=== PATIENT | female | born 1955 | race Caucasian/White ===

== ENCOUNTER → 2017-01-24 | Outpatient (CLI) | payer BC ==
[~2017-01-24] MED LIST: ARIP10TA14 PO; ATORVASTATIN; LISI-604 PO; PREG150C PO; VENL225T PO
== END | disposition home or self-care (01) ==
LOC: CT 07:34
PROVIDERS: ATTEND Urology
DX: N20.0 Calculus of kidney (principal)
CPT/HCPCS: 74176

== ENCOUNTER → 2017-06-04 | Outpatient (CLI) | payer BC ==
[~2017-06-04] MED LIST changes: +ABIL10 PO; -ARIP10TA14 PO; -VENL225T PO; +VENL225T3 PO
[2017-06-04 11:26] LABS: BASOPHILS % 0.4 % (0.0-2.0); EOSINOPHILS % 3.2 % (0.0-5.0); HEMATOCRIT. 37.4 % (36.0-48.0); HEMOGLOBIN. 12.8 g/dL (12.0-16.0); LYMPHOCYTES % 30.6 % (20.0-50.0); MEAN CORPUSCULAR HEMOGLOBIN 32.3 pg (28.0-32.0); MEAN CORPUSCULAR VOLUME 94.1 fL (81.0-99.0); MEAN PLATELET VOLUME 6.5 fl (7.4-10.4); MONOCYTES % 6.3 % (2.0-8.0); NEUTROPHILS % 59.5 % (40.0-76.0); PLATELET 237 x1000/uL (130-400); RED BLOOD CELL COUNT 3.97 mill/uL (4.2-5.4); RED CELL DISTRIBUTION WIDTH 12.4 % (11.6-14.6)
[2017-06-04 11:37] LABS: CARBON DIOXIDE 31 mEq/L (21-32); CHLORIDE 107 mEq/L (98-107)
[2017-06-04 11:42] LABS: INR 0.9; PARTIAL THROMBOPLASTIN TIME 28.6 sec (24.0-34.0); PROTHROMBIN TIME 9.5 sec
== END | disposition home or self-care (01) ==
LOC: LAB 10:56
PROVIDERS: ATTEND Internal Medicine
DX: Z01.818 Encounter for other preprocedural examination (principal); R05 Cough
CPT/HCPCS: 36415; 71020; 80053; 85025; 85610; 85730; 87086

== ENCOUNTER → 2017-06-25 | Outpatient (CLI) | payer BC | END | disposition home or self-care (01) | LOC: RAD 13:48 | PROVIDERS: ATTEND Urology | DX: N20.0 Calculus of kidney (principal) | CPT/HCPCS: 74000 ==

== ENCOUNTER → 2017-12-03 | Outpatient (CLI) | payer BC | END | disposition home or self-care (01) | LOC: RAD 12-02 16:55 | PROVIDERS: ATTEND Internal Medicine | DX: S00.33XA Contusion of nose, initial encounter (principal); Z91.81 History of falling; Y99.8 Other external cause status; X58.XXXA Exposure to other specified factors, initial encounter; Y93.89 Activity, other specified; Y92.89 Other specified places as the place of occurrence of the external cause | CPT/HCPCS: 70160 ==

== ENCOUNTER → 2017-12-12 | Outpatient (CLI) | payer BC | END | disposition home or self-care (01) | LOC: PVL 13:38 | PROVIDERS: ATTEND Podiatrist Foot & Ankle Surgery | DX: M19.072 Primary osteoarthritis, left ankle and foot (principal); M25.572 Pain in left ankle and joints of left foot ==

== ENCOUNTER → 2018-04-02 | Outpatient (CLI) | payer BC | END | disposition home or self-care (01) | LOC: MAMMO 10:39 | PROVIDERS: ATTEND Internal Medicine | DX: Z12.31 Encounter for screening mammogram for malignant neoplasm of breast (principal) | CPT/HCPCS: 77067 ==

== ENCOUNTER → 2018-04-03 | Outpatient (CLI) | payer BC ==
[2018-04-03 10:34] LABS: BASOPHILS % 0.5 % (0.0-2.0); EOSINOPHILS % 3.6 % (0.0-5.0); HEMATOCRIT. 40.9 % (36.0-48.0); HEMOGLOBIN. 14.2 g/dL (12.0-16.0); LYMPHOCYTES % 31.7 % (20.0-50.0); MEAN CORPUSCULAR HEMOGLOBIN 31.7 pg (28.0-32.0); MEAN CORPUSCULAR VOLUME 91.1 fL (81.0-99.0); NEUTROPHILS % 58.2 % (40.0-76.0); PLATELET 313 x1000/uL (130-400); RED BLOOD CELL COUNT 4.49 mill/uL (4.2-5.4); RED CELL DISTRIBUTION WIDTH 13.4 % (11.6-14.6)
[2018-04-03 10:37] LABS: PARTIAL THROMBOPLASTIN TIME 29.6 sec (23.4-31.0)
[2018-04-03 11:01] LABS: CHLORIDE 106 mEq/L (98-107)
[2018-04-03 11:05] LABS: GAMMA GLUTAMYL TRANSPEPTIDASE 40 IU/L (7-32)
[2018-04-03 11:09] LABS: HDL CHOLESTEROL 86 mg/dL (40-59); LDL CHOLESTEROL 100 mg/dL (5-100)
[2018-04-03 11:10] LABS: T4 FREE 1.18 ng/dL (0.76-1.46)
[2018-04-03 12:34] LABS: FERRITIN 34 ng/mL (10-291)
[2018-04-03 14:08] LABS: FOLIC ACID (FOLATE) SERUM >20 ng/mL ng/mL (>5.38)
[2018-04-07 13:10] LABS: VITAMIN B1 THIAMINE WHOLE BLD 187.8 nmol/L (66.5-200.0)
== END | disposition home or self-care (01) ==
LOC: LAB 09:27
PROVIDERS: ATTEND Surgery
DX: E78.1 Pure hyperglyceridemia (principal); E78.00 Pure hypercholesterolemia, unspecified; I10 Essential (primary) hypertension; E11.9 Type 2 diabetes mellitus without complications; K21.9 Gastro-esophageal reflux disease without esophagitis; R53.81 Other malaise
CPT/HCPCS: 36415; 80053; 80061; 82306; 82728; 82746; 82951; 82977; 83036; 83540; 83970; 84425; 84439; 84443; 84550; 85025; 85610; 85730; 87338

== ENCOUNTER → 2018-11-13 | Outpatient (CLI) | payer BC | END | disposition home or self-care (01) | LOC: LAB 09:39 | PROVIDERS: ATTEND Surgery | DX: E78.00 Pure hypercholesterolemia, unspecified (principal); R53.81 Other malaise | CPT/HCPCS: 87338 ==

== ENCOUNTER → 2019-06-10 | Outpatient (CLI) | payer BC ==
[2019-06-10 09:41] LABS: CHLORIDE 106 mEq/L (98-107)
[2019-06-10 09:47] LABS: TOTAL IRON BINDING CAPACITY 193 ug/dL (250-450)
[2019-06-10 09:48] LABS: BASOPHILS % 0.6 % (0.0-2.0); EOSINOPHILS % 2.4 % (0.0-5.0); HEMATOCRIT. 38.4 % (36.0-48.0); HEMOGLOBIN. 13.2 g/dL (12.0-16.0); LYMPHOCYTES % 24.8 % (20.0-50.0); MEAN CORPUSCULAR HEMOGLOBIN 32.8 pg (28.0-32.0); MEAN CORPUSCULAR VOLUME 95.8 fL (81.0-99.0); MEAN PLATELET VOLUME 8.2 fl (7.4-10.4); MONOCYTES % 6.9 % (2.0-8.0); NEUTROPHILS % 65.3 % (40.0-76.0); PLATELET 191 x1000/uL (130-400); RED BLOOD CELL COUNT 4.01 mill/uL (4.2-5.4); RED CELL DISTRIBUTION WIDTH 14.9 % (11.6-14.6)
[2019-06-10 09:49] LABS: LDL CHOLESTEROL 103 mg/dL (5-100)
[2019-06-10 09:51] LABS: HDL CHOLESTEROL 65 mg/dL (40-59)
[2019-06-10 10:55] LABS: FOLIC ACID (FOLATE) SERUM > 20.00 ng/mL (>5.38)
[2019-06-10 12:51] LABS: FERRITIN 270 ng/mL (10-291)
[2019-06-13 13:11] LABS: VITAMIN B1 THIAMINE WHOLE BLD 191.3 nmol/L (66.5-200.0)
== END | disposition home or self-care (01) ==
LOC: LAB 08:36
PROVIDERS: ATTEND Surgery
DX: E78.00 Pure hypercholesterolemia, unspecified (principal); E78.1 Pure hyperglyceridemia; E11.9 Type 2 diabetes mellitus without complications; K21.9 Gastro-esophageal reflux disease without esophagitis; R53.83 Other fatigue; R53.81 Other malaise; K91.1 Postgastric surgery syndromes; E61.0 Copper deficiency
CPT/HCPCS: 36415; 80061; 82306; 82525; 82728; 82746; 83036; 83540; 83550; 83970; 84425; 84550; 84630

== ENCOUNTER → 2019-09-21 | Outpatient (CLI) | payer BC ==
[2019-09-21 11:36] LABS: BASOPHILS % 0.4 % (0.0-2.0); EOSINOPHILS % 2.7 % (0.0-5.0); HEMATOCRIT. 39.6 % (36.0-48.0); HEMOGLOBIN. 13.4 g/dL (12.0-16.0); LYMPHOCYTES % 37.7 % (20.0-50.0); MEAN CORPUSCULAR HEMOGLOBIN 32.6 pg (28.0-32.0); MEAN PLATELET VOLUME 7.1 fl (7.4-10.4); MONOCYTES % 5.3 % (2.0-8.0); NEUTROPHILS % 53.9 % (40.0-76.0); PLATELET 245 x1000/uL (130-400); RED BLOOD CELL COUNT 4.12 mill/uL (4.2-5.4); RED CELL DISTRIBUTION WIDTH 13.5 % (11.6-14.6)
[2019-09-21 11:50] LABS: CHLORIDE 105 mEq/L (98-107)
[2019-09-21 12:19] LABS: VITAMIN B12 SERUM 836 pg/mL (211-911)
[2019-09-21 12:32] LABS: HDL CHOLESTEROL 84 mg/dL (40-59); LDL CHOLESTEROL 117 mg/dL (5-100); TOTAL IRON BINDING CAPACITY 258 ug/dL (250-450)
[2019-09-21 12:49] LABS: FERRITIN 205 ng/mL (10-291)
== END | disposition home or self-care (01) ==
LOC: LAB 10:20
PROVIDERS: ATTEND Surgery
DX: E78.00 Pure hypercholesterolemia, unspecified (principal); E11.9 Type 2 diabetes mellitus without complications; K21.9 Gastro-esophageal reflux disease without esophagitis; R53.83 Other fatigue; K91.1 Postgastric surgery syndromes; E61.0 Copper deficiency
CPT/HCPCS: 36415; 80061; 82306; 82607; 82728; 83036; 83540; 83550; 83970; 84425; 84630

== ENCOUNTER → 2019-11-05 | Outpatient (CLI) | payer BC | END | disposition home or self-care (01) | LOC: MRI 11:19 | PROVIDERS: ATTEND Podiatrist Foot & Ankle Surgery | DX: S93.601A Unspecified sprain of right foot, initial encounter (principal); M65.871 Other synovitis and tenosynovitis, right ankle and foot; M19.071 Primary osteoarthritis, right ankle and foot; M76.61 Achilles tendinitis, right leg; X58.XXXA Exposure to other specified factors, initial encounter; Y93.89 Activity, other specified; Y92.89 Other specified places as the place of occurrence of the external cause; Y99.8 Other external cause status | CPT/HCPCS: 73721 ==

== ENCOUNTER → 2019-12-15 | Outpatient (CLI) | payer BC ==
[2019-12-15 10:20] LABS: BASOPHILS % 0.6 % (0.0-2.0); HEMATOCRIT. 39.6 % (36.0-48.0); HEMOGLOBIN. 13.4 g/dL (12.0-16.0); LYMPHOCYTES % 42.2 % (20.0-50.0); MEAN CORPUSCULAR HEMOGLOBIN 32.5 pg (28.0-32.0); MEAN CORPUSCULAR VOLUME 96.1 fL (81.0-99.0); MEAN PLATELET VOLUME 6.9 fl (7.4-10.4); MONOCYTES % 6.1 % (2.0-8.0); NEUTROPHILS % 47.1 % (40.0-76.0); PLATELET 239 x1000/uL (130-400); RED BLOOD CELL COUNT 4.12 mill/uL (4.2-5.4)
[2019-12-15 10:32] LABS: CHLORIDE 110 mEq/L (98-107)
[2019-12-15 10:39] LABS: LDL CHOLESTEROL 103 mg/dL (5-100)
[2019-12-15 10:40] LABS: HDL CHOLESTEROL 91 mg/dL (40-59)
== END | disposition home or self-care (01) ==
LOC: LAB 09:49
PROVIDERS: ATTEND Surgery
DX: E78.00 Pure hypercholesterolemia, unspecified (principal); E78.1 Pure hyperglyceridemia; E11.9 Type 2 diabetes mellitus without complications; E61.0 Copper deficiency; E61.1 Iron deficiency; K21.9 Gastro-esophageal reflux disease without esophagitis; K91.1 Postgastric surgery syndromes; R53.83 Other fatigue; R53.81 Other malaise
CPT/HCPCS: 36415; 80053; 80061; 82525; 83036; 84630; 85025

== ENCOUNTER → 2020-03-06 | Outpatient (CLI) | payer BC ==
[2020-03-06 09:15] LABS: BASOPHILS % 0.7 % (0.0-2.0); HEMATOCRIT. 41.5 % (36.0-48.0); HEMOGLOBIN. 14.4 g/dL (12.0-16.0); LYMPHOCYTES % 31.8 % (20.0-50.0); MEAN CORPUSCULAR HEMOGLOBIN 33.7 pg (28.0-32.0); MEAN PLATELET VOLUME 6.5 fl (7.4-10.4); MONOCYTES % 5.4 % (2.0-8.0); NEUTROPHILS % 59.1 % (40.0-76.0); PLATELET 240 x1000/uL (130-400); RED BLOOD CELL COUNT 4.28 mill/uL (4.2-5.4); RED CELL DISTRIBUTION WIDTH 12.8 % (11.6-14.6)
[2020-03-06 09:30] LABS: CHLORIDE 105 mEq/L (98-107)
[2020-03-06 09:38] LABS: LDL CHOLESTEROL 114 mg/dL (5-100)
[2020-03-06 09:39] LABS: HDL CHOLESTEROL 93 mg/dL (40-59)
[2020-03-06 09:42] LABS: TOTAL IRON BINDING CAPACITY 301 ug/dL (250-450)
[2020-03-06 12:36] LABS: FERRITIN 53 ng/mL (10-291)
[2020-03-06 14:34] LABS: FOLIC ACID (FOLATE) SERUM >20 ng/mL ng/mL (>5.38)
[2020-03-06 14:46] LABS: VITAMIN B12 SERUM 832 pg/mL (211-911)
[2020-03-08 10:10] LABS: VITAMIN B1 THIAMINE WHOLE BLD 187.5 nmol/L (66.5-200.0)
== END | disposition home or self-care (01) ==
LOC: LAB 08:41
PROVIDERS: ATTEND Surgery
DX: E61.1 Iron deficiency (principal); E78.00 Pure hypercholesterolemia, unspecified; K21.9 Gastro-esophageal reflux disease without esophagitis; R53.83 Other fatigue
CPT/HCPCS: 36415; 80053; 80061; 82306; 82525; 82607; 82728; 82746; 83036; 83540; 83550; 83970; 84425; 84550; 84630; 85025

== ENCOUNTER → 2020-06-26 | Outpatient (CLI) | payer BC | END | disposition home or self-care (01) | LOC: LAB 14:59 | PROVIDERS: ATTEND Internal Medicine | DX: M17.11 Unilateral primary osteoarthritis, right knee (principal); M25.761 Osteophyte, right knee; G89.4 Chronic pain syndrome | CPT/HCPCS: 73562 ==

== ENCOUNTER → 2020-11-13 | Outpatient (CLI) | payer BC ==
[2020-11-13 09:32] LABS: BASOPHILS % 0.5 % (0.0-2.0); EOSINOPHILS % 3.2 % (0.0-5.0); HEMATOCRIT. 41.6 % (36.0-48.0); MEAN CORPUSCULAR HEMOGLOBIN 32.3 pg (28.0-32.0); MEAN CORPUSCULAR VOLUME 95.7 fL (81.0-99.0); MEAN PLATELET VOLUME 6.9 fl (7.4-10.4); MONOCYTES % 4.7 % (2.0-8.0); NEUTROPHILS % 67.6 % (40.0-76.0); PLATELET 265 x1000/uL (130-400); RED BLOOD CELL COUNT 4.35 mill/uL (4.2-5.4); RED CELL DISTRIBUTION WIDTH 12.4 % (11.6-14.6)
[2020-11-13 09:38] LABS: CHLORIDE 106 mEq/L (98-107)
[2020-11-13 09:44] LABS: LDL CHOLESTEROL 87 mg/dL (5-100)
[2020-11-13 09:45] LABS: HDL CHOLESTEROL 77 mg/dL (40-59)
[2020-11-13 14:24] LABS: CLARITY URINE CLEAR (CLEAR); COLOR URINE DARK YELLOW (YELLOW); KETONES URINE TRACE (NEGATIVE); LEUKOCYTE ESTERASE URINE NEGATIVE (NEGATIVE); NITRITE URINE NEGATIVE (NEGATIVE); OCCULT BLOOD URINE NEGATIVE (NEGATIVE); PROTEIN URINE NEGATIVE (NEGATIVE); SPECIFIC GRAVITY URINE 1.025 (1.005-1.030)
== END | disposition home or self-care (01) ==
LOC: LAB 08:52
PROVIDERS: ATTEND Obstetrics & Gynecology Obstetrics
DX: Z13.1 Encounter for screening for diabetes mellitus (principal); N30.20 Other chronic cystitis without hematuria; E55.9 Vitamin D deficiency, unspecified; R94.6 Abnormal results of thyroid function studies; E78.5 Hyperlipidemia, unspecified; R79.9 Abnormal finding of blood chemistry, unspecified; R68.89 Other general symptoms and signs
CPT/HCPCS: 36415; 80053; 80061; 81003; 82306; 83036; 84443; 85025

== ENCOUNTER → 2020-11-22 | Outpatient (CLI) | payer BC | END | disposition home or self-care (01) | LOC: LAB 12:31 | PROVIDERS: ATTEND Obstetrics & Gynecology Obstetrics | DX: Z01.812 Encounter for preprocedural laboratory examination (principal); Z20.828 Contact with and (suspected) exposure to other viral communicable diseases | CPT/HCPCS: 87426 ==

== ENCOUNTER → 2020-11-23 | Outpatient (CLI) | payer BC | END | disposition home or self-care (01) | LOC: MAMMO 07:26 | PROVIDERS: ATTEND Obstetrics & Gynecology Obstetrics | DX: Z12.31 Encounter for screening mammogram for malignant neoplasm of breast (principal); Z13.820 Encounter for screening for osteoporosis | CPT/HCPCS: 77067; 77080 ==

== ENCOUNTER → 2020-12-15 | Outpatient (CLI) | payer BC | END | disposition home or self-care (01) | LOC: US 08:32 | PROVIDERS: ATTEND Obstetrics & Gynecology Obstetrics | DX: R92.2 Inconclusive mammogram (principal) | CPT/HCPCS: 76642 ==

== ENCOUNTER → 2021-01-16 | Outpatient (CLI) | payer BC ==
[~2021-01-16] MED LIST changes: +ARIP20TA9 PO; +FLUO40CA8 PO; +HYDR-4009 PO; -LISI-604 PO; +LISI20TA31 PO; +VENL75CA3 PO
== END | disposition home or self-care (01) ==
LOC: LAB 07:55
PROVIDERS: ATTEND Obstetrics & Gynecology Obstetrics
DX: Z01.812 Encounter for preprocedural laboratory examination (principal); Z20.822 Contact with and (suspected) exposure to COVID-19
CPT/HCPCS: 87426

== ENCOUNTER → 2021-01-17 | Outpatient (CLI) | payer BC | END | disposition home or self-care (01) | LOC: US 07:32 | PROVIDERS: ATTEND Obstetrics & Gynecology Obstetrics | DX: K80.20 Calculus of gallbladder without cholecystitis without obstruction (principal); N88.8 Other specified noninflammatory disorders of cervix uteri; K76.0 Fatty (change of) liver, not elsewhere classified; R93.89 Abnormal findings on diagnostic imaging of other specified body structures | CPT/HCPCS: 76700; 76830; 76856 ==

== ENCOUNTER → 2021-01-30 | Outpatient (CLI) | payer BC ==
[~2021-01-30] MED LIST changes: -ABIL10 PO
== END | disposition home or self-care (01) ==
LOC: LAB 08:35
PROVIDERS: ATTEND Obstetrics & Gynecology Obstetrics
DX: Z01.812 Encounter for preprocedural laboratory examination (principal); Z20.822 Contact with and (suspected) exposure to COVID-19
CPT/HCPCS: 87426

== ENCOUNTER → 2021-01-31 | Day surgery (SDC) | payer BC ==
[~2021-01-31] VITALS: Ht 170.2 cm; Wt 99.8 kg
[~2021-01-31] MED LIST changes: +CEFAZOLIN SODIUM 1000MG/VIAL ONE; +FENTANYL CITRATE/PF 50MCG/ML 2ML VIAL ONE; +HYDROMORPHONE HCL/PF 2MG/ML CPJ IV PRN; +LACTATED RINGERS 1,000 ML IV SCH; +LIDOCAINE HCL 2% JELLY 5ML ONE; +LIDOCAINE HCL/PF 1% 10 MG/ML 5ML VIAL ONE; +MEPERIDINE HCL/PF 25MG/ML CPJ IV PRN; +METOCLOPRAMIDE HCL 10MG/2ML VIAL ONE; +MIDAZOLAM HCL 2 MG/2 ML VIAL ONE; +MORPHINE SULFATE 2 MG/ML CPJ (NOT FOR IM USE) IV PRN; +ONDANSETRON HCL 4MG/2ML INJ IV PRN; +ONDANSETRON HCL 4MG/2ML INJ ONE; +PROPOFOL 200MG/20ML VIAL IV ONE; +SODIUM CHLORIDE 0.9% 1,000 ML IV ONE
[2021-01-31 07:47] LABS: BASOPHILS % 0.6 % (0.0-2.0); EOSINOPHILS % 4.2 % (0.0-5.0); HEMATOCRIT. 41.7 % (36.0-48.0); HEMOGLOBIN. 14.1 g/dL (12.0-16.0); LYMPHOCYTES % 30.1 % (20.0-50.0); MEAN CORPUSCULAR HEMOGLOBIN 32.9 pg (28.0-32.0); MEAN CORPUSCULAR VOLUME 97.6 fL (81.0-99.0); MEAN PLATELET VOLUME 6.5 fl (7.4-10.4); MONOCYTES % 7.4 % (2.0-8.0); NEUTROPHILS % 57.7 % (40.0-76.0); PLATELET 263 x1000/uL (130-400); RED BLOOD CELL COUNT 4.28 mill/uL (4.2-5.4); RED CELL DISTRIBUTION WIDTH 13.5 % (11.6-14.6)
[2021-01-31 07:54] LABS: CHLORIDE 109 mEq/L (98-107)
[2021-01-31 08:34] LABS: UCG SCREEN NEGATIVE
== END | disposition home or self-care (01) ==
LOC: OR 07:21
PROVIDERS: ATTEND Obstetrics & Gynecology Obstetrics
DX: N95.0 Postmenopausal bleeding (principal); N85.6 Intrauterine synechiae; Z79.899 Other long term (current) drug therapy; Z98.890 Other specified postprocedural states; Z82.49 Family history of ischemic heart disease and other diseases of the circulatory system
CPT/HCPCS: 36415; 58558; 80048; 81025; 85025; 88305; 93005; J0690; J2250; J2405; J2704; J2765; J3010; J3490

== ENCOUNTER → 2021-07-19 | Outpatient (CLI) | payer BC ==
[~2021-07-19] MED LIST changes: +ARIP20TA16 PO; -ARIP20TA9 PO; -ATORVASTATIN; -CEFAZOLIN SODIUM 1000MG/VIAL ONE; -FENTANYL CITRATE/PF 50MCG/ML 2ML VIAL ONE; -HYDROMORPHONE HCL/PF 2MG/ML CPJ IV PRN; -LACTATED RINGERS 1,000 ML IV SCH; -LIDOCAINE HCL 2% JELLY 5ML ONE; -LIDOCAINE HCL/PF 1% 10 MG/ML 5ML VIAL ONE; -LISI20TA31 PO; -MEPERIDINE HCL/PF 25MG/ML CPJ IV PRN; -METOCLOPRAMIDE HCL 10MG/2ML VIAL ONE; -MIDAZOLAM HCL 2 MG/2 ML VIAL ONE; -MORPHINE SULFATE 2 MG/ML CPJ (NOT FOR IM USE) IV PRN; -ONDANSETRON HCL 4MG/2ML INJ IV PRN; -ONDANSETRON HCL 4MG/2ML INJ ONE; -PROPOFOL 200MG/20ML VIAL IV ONE; -SODIUM CHLORIDE 0.9% 1,000 ML IV ONE; -VENL225T3 PO
[2021-07-19 16:52] LABS: FOLIC ACID (FOLATE) SERUM > 20.00 ng/mL (>5.38)
[2021-07-19 16:57] LABS: VITAMIN B12 SERUM 1635 pg/mL (211-911)
== END | disposition home or self-care (01) ==
LOC: LAB 13:20
PROVIDERS: ATTEND Psychiatry & Neurology Neurology
DX: R41.3 Other amnesia (principal); G93.40 Encephalopathy, unspecified
CPT/HCPCS: 36415; 82607; 82746; 83036; 84436; 84443; 84480

== ENCOUNTER → 2021-07-27 | Outpatient (CLI) | payer BC ==
[~2021-07-27] MED LIST changes: -ARIP20TA16 PO; +ARIP20TA9 PO
== END | disposition home or self-care (01) ==
LOC: RAD 13:45
PROVIDERS: ATTEND Psychiatry & Neurology Neurology
DX: R41.3 Other amnesia (principal)
CPT/HCPCS: 70551

== ENCOUNTER → 2021-08-06 | Outpatient (CLI) | payer BC ==
[~2021-08-06] MED LIST changes: +ARIP20TA16 PO; -ARIP20TA9 PO
== END | disposition home or self-care (01) ==
LOC: RAD 08:54
PROVIDERS: ATTEND Podiatrist Foot & Ankle Surgery
DX: S93.331A Other subluxation of right foot, initial encounter (principal); M19.071 Primary osteoarthritis, right ankle and foot; M85.88 Other specified disorders of bone density and structure, other site; M79.671 Pain in right foot; X58.XXXA Exposure to other specified factors, initial encounter; Y93.89 Activity, other specified; Y92.89 Other specified places as the place of occurrence of the external cause; Y99.8 Other external cause status
CPT/HCPCS: 73630

== ENCOUNTER → 2021-08-16 | Outpatient (CLI) | payer BC | END | disposition home or self-care (01) | LOC: RAD 15:50 | PROVIDERS: ATTEND Internal Medicine | DX: M17.11 Unilateral primary osteoarthritis, right knee (principal) | CPT/HCPCS: 73562 ==

== ENCOUNTER → 2021-08-17 | Outpatient (CLI) | payer BC ==
[2021-08-17 11:45] LABS: CHLORIDE 105 mEq/L (98-107)
[2021-08-17 11:53] LABS: BASOPHILS % 0.5 % (0.0-2.0); EOSINOPHILS % 5.5 % (0.0-5.0); HEMATOCRIT. 40.6 % (36.0-48.0); HEMOGLOBIN. 14.2 g/dL (12.0-16.0); LYMPHOCYTES % 24.3 % (20.0-50.0); MEAN CORPUSCULAR HEMOGLOBIN 31.6 pg (28.0-32.0); MEAN CORPUSCULAR VOLUME 90.3 fL (81.0-99.0); MEAN PLATELET VOLUME 6.6 fl (7.4-10.4); MONOCYTES % 8.6 % (2.0-8.0); NEUTROPHILS % 61.1 % (40.0-76.0); PLATELET 293 x1000/uL (130-400); RED CELL DISTRIBUTION WIDTH 15.2 % (11.6-14.6)
[2021-08-17 11:55] LABS: TOTAL IRON BINDING CAPACITY 326 ug/dL (250-450)
[2021-08-17 11:57] LABS: LDL CHOLESTEROL 74 mg/dL (5-100)
[2021-08-17 11:58] LABS: HDL CHOLESTEROL 127 mg/dL (40-59)
[2021-08-17 12:32] LABS: FERRITIN 113 ng/mL (10-291)
[2021-08-17 12:44] LABS: VITAMIN B12 SERUM 936 pg/mL (211-911)
[2021-08-17 13:00] LABS: FOLIC ACID (FOLATE) SERUM >20 ng/mL ng/mL (>5.38)
== END | disposition home or self-care (01) ==
LOC: LAB 10:44
PROVIDERS: ATTEND Surgery
DX: E78.1 Pure hyperglyceridemia (principal); E61.1 Iron deficiency; E61.0 Copper deficiency; E78.00 Pure hypercholesterolemia, unspecified; K21.9 Gastro-esophageal reflux disease without esophagitis; R53.83 Other fatigue; R53.81 Other malaise; K91.1 Postgastric surgery syndromes
CPT/HCPCS: 36415; 80053; 80061; 82306; 82525; 82607; 82728; 82746; 83036; 83540; 83550; 83970; 84425; 84550; 84630; 85025

== ENCOUNTER → 2021-11-21 | Outpatient (CLI) | payer BC ==
[2021-11-21 09:33] LABS: BASOPHILS % 0.5 % (0.0-2.0); EOSINOPHILS % 3.9 % (0.0-5.0); HEMOGLOBIN. 13.8 g/dL (12.0-16.0); LYMPHOCYTES % 35.3 % (20.0-50.0); MEAN CORPUSCULAR VOLUME 92.3 fL (81.0-99.0); MEAN PLATELET VOLUME 6.5 fl (7.4-10.4); MONOCYTES % 7.2 % (2.0-8.0); NEUTROPHILS % 53.1 % (40.0-76.0); PLATELET 343 x1000/uL (130-400); RED BLOOD CELL COUNT 4.44 mill/uL (4.2-5.4); RED CELL DISTRIBUTION WIDTH 14.6 % (11.6-14.6)
[2021-11-21 09:45] LABS: CHLORIDE 104 mEq/L (98-107)
[2021-11-21 09:54] LABS: LDL CHOLESTEROL 87 mg/dL (5-100)
[2021-11-21 09:56] LABS: HDL CHOLESTEROL 123 mg/dL (40-59); T4 FREE 1.05 ng/dL (0.76-1.46)
[2021-11-21 10:45] LABS: CLARITY URINE CLEAR (CLEAR); COLOR URINE YELLOW (YELLOW); KETONES URINE NEGATIVE (NEGATIVE); LEUKOCYTE ESTERASE URINE NEGATIVE (NEGATIVE); NITRITE URINE NEGATIVE (NEGATIVE); OCCULT BLOOD URINE NEGATIVE (NEGATIVE); PROTEIN URINE NEGATIVE (NEGATIVE); SPECIFIC GRAVITY URINE 1.007 (1.005-1.030); UROBILINOGEN URINE 0.2 E.U./dL (0.2-1.0)
== END | disposition home or self-care (01) ==
LOC: RAD 08:58
PROVIDERS: ATTEND Internal Medicine
DX: Z00.00 Encounter for general adult medical examination without abnormal findings (principal); Z11.59 Encounter for screening for other viral diseases; E66.01 Morbid (severe) obesity due to excess calories; E78.5 Hyperlipidemia, unspecified; R05.3 Chronic cough; Z68.41 Body mass index [BMI] 40.0-44.9, adult; I10 Essential (primary) hypertension; M15.3 Secondary multiple arthritis
CPT/HCPCS: 36415; 71046; 80053; 80061; 81003; 84439; 84443; 85025; 86803

== ENCOUNTER 2022-03-05 21:17 | Emergency (ER) | payer BC ==
[~2022-03-05] VITALS: Ht 170.2 cm; Wt 111.0 kg
[2022-03-05] MEDS ORDERED: MORPHINE SULFATE 4 MG/ML CPJ (NOT FOR IM USE) IV STA (21:54)
[2022-03-05] MEDS ORDERED: ONDANSETRON HCL 4MG/2ML INJ IV STA (21:54)
[2022-03-05 22:25] VITALS: BP 151/72
[2022-03-05 22:55] LABS: BASOPHILS % 0.2 % (0.0-2.0); EOSINOPHILS % 0.2 % (0.0-5.0); HEMATOCRIT. 41.8 % (36.0-48.0); HEMOGLOBIN. 13.9 g/dL (12.0-16.0); LYMPHOCYTES % 10.7 % (20.0-50.0); MEAN CORPUSCULAR HEMOGLOBIN 31.4 pg (28.0-32.0); MEAN CORPUSCULAR VOLUME 94.5 fL (81.0-99.0); MEAN PLATELET VOLUME 7.3 fl (7.4-10.4); MONOCYTES % 4.3 % (2.0-8.0); NEUTROPHILS % 84.6 % (40.0-76.0); PLATELET 293 x1000/uL (130-400); RED BLOOD CELL COUNT 4.43 mill/uL (4.2-5.4); RED CELL DISTRIBUTION WIDTH 14.2 % (11.6-14.6)
[2022-03-05 23:01] LABS: CHLORIDE 108 mEq/L (98-107)
[2022-03-06] MEDS ORDERED: IOHEXOL-300 100 ML BOTTLE ONE (00:27)
== END 2022-03-06 02:46 | disposition home or self-care (01) ==
LOC: ER 21:17
DX: R10.9 Unspecified abdominal pain (principal); Z98.51 Tubal ligation status; Z98.0 Intestinal bypass and anastomosis status
CPT/HCPCS: 36415; 74177; 80053; 83690; 85025; 96374; 96375; 99285; J2270; J2405; Q9967

== ENCOUNTER → 2022-03-29 | Outpatient (CLI) | payer BC | END | disposition home or self-care (01) | LOC: RAD 14:07 | DX: M17.0 Bilateral primary osteoarthritis of knee (principal) | CPT/HCPCS: 73562 ==

== ENCOUNTER → 2022-04-05 | Outpatient (CLI) | payer BC | END | disposition home or self-care (01) | LOC: RAD 15:30 | PROVIDERS: ATTEND Podiatrist Foot & Ankle Surgery | DX: M19.171 Post-traumatic osteoarthritis, right ankle and foot (principal); M21.41 Flat foot [pes planus] (acquired), right foot; M25.771 Osteophyte, right ankle | CPT/HCPCS: 73610; 73630 ==

== ENCOUNTER → 2022-04-16 | Outpatient (CLI) | payer BC ==
[~2022-04-16] MED LIST changes: +FERR325T6 MT; +MULT-1146 MT
[2022-04-16 12:58] LABS: BASOPHILS % 0.5 % (0.0-2.0); EOSINOPHILS % 3.1 % (0.0-5.0); HEMATOCRIT. 40.7 % (36.0-48.0); HEMOGLOBIN. 13.5 g/dL (12.0-16.0); LYMPHOCYTES % 34.6 % (20.0-50.0); MEAN CORPUSCULAR HEMOGLOBIN 30.8 pg (28.0-32.0); MEAN PLATELET VOLUME 6.8 fl (7.4-10.4); MONOCYTES % 7.6 % (2.0-8.0); NEUTROPHILS % 54.2 % (40.0-76.0); PLATELET 269 x1000/uL (130-400); RED BLOOD CELL COUNT 4.37 mill/uL (4.2-5.4); RED CELL DISTRIBUTION WIDTH 14.1 % (11.6-14.6)
[2022-04-16 13:07] LABS: INR 0.9; PARTIAL THROMBOPLASTIN TIME 29.6 sec (23.4-31.0)
[2022-04-16 13:10] LABS: CHLORIDE 107 mEq/L (98-107); CLARITY URINE CLEAR (CLEAR); COLOR URINE YELLOW (YELLOW); KETONES URINE NEGATIVE (NEGATIVE); LEUKOCYTE ESTERASE URINE TRACE (NEGATIVE); NITRITE URINE NEGATIVE (NEGATIVE); OCCULT BLOOD URINE NEGATIVE (NEGATIVE); PH URINE 6.5 (4.5-8.0); PROTEIN URINE NEGATIVE (NEGATIVE); SPECIFIC GRAVITY URINE 1.013 (1.005-1.030); UROBILINOGEN URINE 0.2 E.U./dL (0.2-1.0)
== END | disposition home or self-care (01) ==
LOC: LAB 12:04
PROVIDERS: ATTEND Family Medicine
DX: Z01.818 Encounter for other preprocedural examination (principal); M17.11 Unilateral primary osteoarthritis, right knee; I10 Essential (primary) hypertension; R73.03 Prediabetes
CPT/HCPCS: 36415; 71046; 80053; 81003; 83036; 85025

== ENCOUNTER → 2022-05-01 | Outpatient (CLI) | payer BC ==
[~2022-05-01] MED LIST changes: -FERR325T6 MT; -MULT-1146 MT
== END | disposition home or self-care (01) ==
LOC: LAB 12:12
DX: Z20.822 Contact with and (suspected) exposure to COVID-19 (principal)
CPT/HCPCS: 87426; C9803

== ENCOUNTER 2022-05-03 08:19 | Inpatient (IN) | payer BC ==
[~2022-05-03] VITALS: Ht 170.2 cm; Wt 106.1 kg
[~2022-05-03 08:19] MED LIST changes: +TRANEXAMIC ACID 1,000 MG in SODIUM CHLORIDE 0.9% 100 ML IV NR; +TRANEXAMIC ACID 1,000 MG/10 ML IV NR
[2022-05-03] MEDS ORDERED: VANCOMYCIN HCL 1 GM/VIAL ONE (08:36)
[2022-05-03] MEDS ORDERED: ROPIVACAINE HCL 10MG/ML 20 ML VIAL EPI ONE ×3 (08:36→12:09)
[2022-05-03] MEDS ORDERED: KETOROLAC 30MG/ML VIAL ONE (08:37)
[2022-05-03] MEDS ORDERED: EPINEPHRINE 1:1000 1 MG/ML AMP ONE (08:37)
[2022-05-03] MEDS ORDERED: MORPHINE SULFATE/PF 1MG/ML 10ML AMP ONE (08:37)
[2022-05-03] MEDS: LACTATED RINGERS 1,000 ML IV SCH ×2 (09:15→22:12)
[2022-05-03] MEDS ORDERED: MULT-1146 MT (09:33)
[2022-05-03] MEDS ORDERED: FERR325T6 MT (09:33)
[2022-05-03] MEDS ORDERED: POLYMYXIN B SULFATE 500000 UNITS/VIAL ONE (10:50)
[2022-05-03] MEDS ORDERED: ONDANSETRON HCL 4MG/2ML INJ ONE (11:06)
[2022-05-03] MEDS ORDERED: DEXAMETHASONE 4MG/ML 1ML VIAL ONE (11:06)
[2022-05-03] MEDS ORDERED: MIDAZOLAM HCL 2 MG/2 ML VIAL ONE ×2 (11:07→13:45)
[2022-05-03] MEDS ORDERED: PROPOFOL 200MG/20ML VIAL IV ONE ×3 (11:07→12:40)
[2022-05-03] MEDS ORDERED: FENTANYL CITRATE/PF 50MCG/ML 2ML VIAL ONE (11:07)
[2022-05-03] MEDS ORDERED: CEFAZOLIN SODIUM 1000MG/VIAL ONE (11:37)
[2022-05-03] MEDS ORDERED: HYDROMORPHONE HCL/PF 2MG/ML CPJ ONE ×2 (11:40→13:44)
[2022-05-03] MEDS ORDERED: ROCURONIUM BROMIDE 10MG/ML VIAL 5ML IV ONE ×2 (11:47→12:40)
[2022-05-03] MEDS ORDERED: MEPERIDINE HCL/PF 25MG/ML CPJ IV PRN (12:15)
[2022-05-03] MEDS ORDERED: HYDROMORPHONE HCL/PF 2MG/ML CPJ IV PRN (12:15)
[2022-05-03] MEDS ORDERED: ONDANSETRON HCL 4MG/2ML INJ IV PRN ×2 (12:15→13:30)
[2022-05-03] MEDS ORDERED: LABETALOL 5MG/ML SYR 20 MG/4 ML SYRINGE IV PRN (12:15)
[2022-05-03] MEDS ORDERED: LABETALOL HCL 5MG/ML VIAL 20ML IV ONE (12:39)
[2022-05-03] MEDS ORDERED: SKIN ADHESIVE 0.7 GM EA TOP ONE (13:26)
[2022-05-03] MEDS ORDERED: CEFAZOLIN 1000MG PREMIX 50 ML IV ONE (13:30)
[2022-05-03] MEDS ORDERED: KETOROLAC 30MG/ML VIAL IV PRN (13:30)
[2022-05-03] MEDS ORDERED: NEOSTIGMINE METHYLSULFATE 1MG/ML 10 ML VIAL ONE (13:34)
[2022-05-03] MEDS ORDERED: GLYCOPYRROLATE 0.2 MG/ML 2ML VIAL ONE ×2 (13:34)
[2022-05-03 16:00] VITALS: BP 148/68
[2022-05-03] MEDS ORDERED: NALOXONE HCL 0.4MG/ML VIAL IV PRN (17:45)
[2022-05-03] MEDS: METOCLOPRAMIDE HCL 10MG/2ML VIAL IV SCH ×2 (18:04→22:13)
[2022-05-03] MEDS: SENNOSIDES/DOCUSATE SOD 8.6/50MG TABLET PO SCH (18:04)
[2022-05-03] MEDS: HYDROCODONE/ACETAMINOPHEN 10/325MG TABLET PO PRN (18:04)
[2022-05-03 20:00] VITALS: BP 123/61
[2022-05-03] MEDS ORDERED: CEFAZOLIN 1000MG PREMIX 50 ML IV SCH (20:00)
[2022-05-03 20:28] VITALS: BP 148/68
[2022-05-04] VITALS: BP 119/55
[2022-05-04] MEDS: HYDROCODONE/ACETAMINOPHEN 10/325MG TABLET PO PRN ×4 (03:10→21:10)
[2022-05-04 04:00] VITALS: BP 137/59
[2022-05-04] MEDS: CEFAZOLIN 1000MG PREMIX 50 ML IV SCH ×3 (06:23→21:11)
[2022-05-04] MEDS: METOCLOPRAMIDE HCL 10MG/2ML VIAL IV SCH ×3 (06:24→21:11)
[2022-05-04 07:26] LABS: BASOPHILS % 0.3 % (0.0-2.0); EOSINOPHILS % 0.7 % (0.0-5.0); HEMATOCRIT. 35.2 % (36.0-48.0); HEMOGLOBIN. 11.9 g/dL (12.0-16.0); LYMPHOCYTES % 11.1 % (20.0-50.0); MEAN CORPUSCULAR HEMOGLOBIN 31.9 pg (28.0-32.0); MEAN CORPUSCULAR VOLUME 94.2 fL (81.0-99.0); MEAN PLATELET VOLUME 7.2 fl (7.4-10.4); MONOCYTES % 7.3 % (2.0-8.0); NEUTROPHILS % 80.6 % (40.0-76.0); PLATELET 205 x1000/uL (130-400); RED BLOOD CELL COUNT 3.74 mill/uL (4.2-5.4); RED CELL DISTRIBUTION WIDTH 14.1 % (11.6-14.6)
[2022-05-04 07:42] LABS: CHLORIDE 108 mEq/L (98-107)
[2022-05-04 08:00] VITALS: BP 149/65
[2022-05-04] MEDS: SENNOSIDES/DOCUSATE SOD 8.6/50MG TABLET PO SCH ×2 (08:18→16:34)
[2022-05-04] MEDS ORDERED: APIXABAN 2.5 MG TABLET PO SCH (09:00)
[2022-05-04] MEDS: FLUOXETINE HCL 20MG CAPSULE PO SCH (11:04)
[2022-05-04] MEDS: DOCUSATE SODIUM 250MG CAPSULE PO SCH (11:05)
[2022-05-04] MEDS: MULTIVITAMINS,THER W-MINERALS TABLET PO SCH (11:06)
[2022-05-04 12:00] VITALS: BP 156/72
[2022-05-04] MEDS: FERROUS SULFATE 300MG/5ML UDC PO SCH ×2 (12:41→16:34)
[2022-05-04] MEDS: ARIPIPRAZOLE 5MG TABLET PO SCH (12:41)
[2022-05-04] MEDS ORDERED: CLONIDINE 0.1MG TABLET PO PRN (15:15)
[2022-05-04 16:00] VITALS: BP_SYST 148; BP_SYST 156; BP_DIAS 68; BP_DIAS 72
[2022-05-04] MEDS: APIXABAN 2.5 MG TABLET PO SCH (16:34)
[2022-05-04 20:00] VITALS: BP 162/79
[2022-05-04] MEDS: VENLAFAXINE HCL 37.5MG TABLET PO SCH (21:11)
[2022-05-05] VITALS: BP 159/81
[2022-05-05 04:00] VITALS: BP 155/79
[2022-05-05] MEDS: HYDROCODONE/ACETAMINOPHEN 10/325MG TABLET PO PRN ×4 (04:38→21:15)
[2022-05-05] MEDS: CEFAZOLIN 1000MG PREMIX 50 ML IV SCH ×3 (06:31→22:00)
[2022-05-05] MEDS: METOCLOPRAMIDE HCL 10MG/2ML VIAL IV SCH ×3 (06:32→22:00)
[2022-05-05 06:44] LABS: BASOPHILS % 0.3 % (0.0-2.0); EOSINOPHILS % 3.7 % (0.0-5.0); HEMATOCRIT. 36.3 % (36.0-48.0); LYMPHOCYTES % 17.8 % (20.0-50.0); MEAN CORPUSCULAR HEMOGLOBIN 31.7 pg (28.0-32.0); MEAN CORPUSCULAR VOLUME 95.6 fL (81.0-99.0); MEAN PLATELET VOLUME 7.5 fl (7.4-10.4); NEUTROPHILS % 69.2 % (40.0-76.0); PLATELET 191 x1000/uL (130-400); RED BLOOD CELL COUNT 3.79 mill/uL (4.2-5.4)
[2022-05-05 07:55] LABS: CHLORIDE 108 mEq/L (98-107)
[2022-05-05 08:00] VITALS: BP 151/71
[2022-05-05] MEDS: FLUOXETINE HCL 20MG CAPSULE PO SCH (08:29)
[2022-05-05] MEDS: SENNOSIDES/DOCUSATE SOD 8.6/50MG TABLET PO SCH ×2 (08:30→16:19)
[2022-05-05] MEDS: DOCUSATE SODIUM 250MG CAPSULE PO SCH (08:30)
[2022-05-05] MEDS: APIXABAN 2.5 MG TABLET PO SCH ×2 (08:30→16:19)
[2022-05-05] MEDS: FERROUS SULFATE 300MG/5ML UDC PO SCH ×3 (08:31→16:24)
[2022-05-05] MEDS: MULTIVITAMINS,THER W-MINERALS TABLET PO SCH (08:31)
[2022-05-05] MEDS: ARIPIPRAZOLE 5MG TABLET PO SCH (08:33)
[2022-05-05] MEDS: VENLAFAXINE HCL 37.5MG TABLET PO SCH ×2 (08:38→21:15)
[2022-05-05 12:00] VITALS: BP 160/79
[2022-05-05 16:00] VITALS: BP 140/61
[2022-05-05 20:00] VITALS: BP 123/53
[2022-05-05] MEDS: LACTATED RINGERS 1,000 ML IV SCH ×2 (21:15→21:19)
[2022-05-06] VITALS: BP 132/67
[2022-05-06] MEDS: HYDROCODONE/ACETAMINOPHEN 10/325MG TABLET PO PRN ×3 (03:29→20:24)
[2022-05-06 04:00] VITALS: BP_SYST 125; BP_SYST 135; BP_DIAS 60; BP_DIAS 75
[2022-05-06] MEDS: METOCLOPRAMIDE HCL 10MG/2ML VIAL IV SCH ×2 (06:00→13:29)
[2022-05-06] MEDS: FERROUS SULFATE 300MG/5ML UDC PO SCH ×3 (08:37→17:28)
[2022-05-06] MEDS: SENNOSIDES/DOCUSATE SOD 8.6/50MG TABLET PO SCH ×2 (08:37→17:00)
[2022-05-06] MEDS: MULTIVITAMINS,THER W-MINERALS TABLET PO SCH (08:37)
[2022-05-06] MEDS: APIXABAN 2.5 MG TABLET PO SCH ×2 (08:37→17:28)
[2022-05-06] MEDS: DOCUSATE SODIUM 250MG CAPSULE PO SCH (08:37)
[2022-05-06] MEDS: ARIPIPRAZOLE 5MG TABLET PO SCH (08:37)
[2022-05-06] MEDS: FLUOXETINE HCL 20MG CAPSULE PO SCH (08:37)
[2022-05-06] MEDS: VENLAFAXINE HCL 37.5MG TABLET PO SCH ×2 (08:37→20:23)
[2022-05-06] MEDS: AMLODIPINE 5MG TABLET PO SCH (13:22)
[2022-05-06] MEDS: HYDROCODONE/ACETAMINOPHEN 5/325MG TABLET PO PRN ×2 (13:23→17:29)
[2022-05-06 20:00] VITALS: BP 106/69
[2022-05-07] MEDS: HYDROCODONE/ACETAMINOPHEN 10/325MG TABLET PO PRN ×3 (02:22→16:49)
[2022-05-07 04:00] VITALS: BP 130/74
[2022-05-07 08:00] VITALS: BP 151/77
[2022-05-07] MEDS: VENLAFAXINE HCL 37.5MG TABLET PO SCH (09:07)
[2022-05-07] MEDS: FERROUS SULFATE 300MG/5ML UDC PO SCH ×3 (09:07→16:50)
[2022-05-07] MEDS: FLUOXETINE HCL 20MG CAPSULE PO SCH (09:08)
[2022-05-07] MEDS: AMLODIPINE 5MG TABLET PO SCH (09:08)
[2022-05-07] MEDS: MULTIVITAMINS,THER W-MINERALS TABLET PO SCH (09:08)
[2022-05-07] MEDS: ARIPIPRAZOLE 5MG TABLET PO SCH (09:08)
[2022-05-07] MEDS: APIXABAN 2.5 MG TABLET PO SCH ×2 (09:08→12:40)
[2022-05-07] MEDS: DOCUSATE SODIUM 250MG CAPSULE PO SCH (09:08)
[2022-05-07] MEDS: SENNOSIDES/DOCUSATE SOD 8.6/50MG TABLET PO SCH ×2 (09:09→16:49)
[2022-05-07 12:00] VITALS: BP 145/64
[2022-05-07 16:00] VITALS: BP 145/64
[2022-05-07 16:53] VITALS: BP 128/64
== END 2022-05-07 17:52 | disposition home or self-care (01) | DRG 470 ==
LOC: OR 08:19 → 6EST 08:20
PROVIDERS: ATTEND Internal Medicine
PROC: 0SRC0J9 Replacement of Right Knee Joint with Synthetic Substitute, Cemented, Open Approach (ICD-10-PCS; principal; 2022-05-03)
DX: M17.11 Unilateral primary osteoarthritis, right knee (principal); E44.1 Mild protein-calorie malnutrition; Z68.36 Body mass index [BMI] 36.0-36.9, adult; E66.9 Obesity, unspecified; I10 Essential (primary) hypertension; D50.9 Iron deficiency anemia, unspecified; Z79.899 Other long term (current) drug therapy; Z79.891 Long term (current) use of opiate analgesic; Z98.84 Bariatric surgery status
CPT/HCPCS: 36415; 73562; 80053; 85025; 86850; 86900; 88305; 88311; 93005; 93306; 97110; 97116; 97162; 97166; C1713; C1776; J0690; J1100; J1170; J1885; J2250; J2274; J2405; J2704; J2710; J2765; J2795; J3010; J3370; J3490; J7050; J7120; L1830

== ENCOUNTER → 2022-08-08 | Outpatient (CLI) | payer BC ==
[~2022-08-08] MED LIST changes: +FERR325T6 MT; +MULT-1146 MT; -PREG150C PO; -TRANEXAMIC ACID 1,000 MG in SODIUM CHLORIDE 0.9% 100 ML IV NR; -TRANEXAMIC ACID 1,000 MG/10 ML IV NR
[2022-08-08 11:26] LABS: CLARITY URINE CLEAR (CLEAR); COLOR URINE YELLOW (YELLOW); KETONES URINE NEGATIVE (NEGATIVE); LEUKOCYTE ESTERASE URINE NEGATIVE (NEGATIVE); NITRITE URINE NEGATIVE (NEGATIVE); OCCULT BLOOD URINE NEGATIVE (NEGATIVE); PH URINE 5.5 (4.5-8.0); PROTEIN URINE NEGATIVE (NEGATIVE); SPECIFIC GRAVITY URINE 1.013 (1.005-1.030); UROBILINOGEN URINE 0.2 E.U./dL (0.2-1.0)
== END | disposition home or self-care (01) ==
LOC: LAB 10:38
PROVIDERS: ATTEND Obstetrics & Gynecology Obstetrics
DX: Z13.1 Encounter for screening for diabetes mellitus (principal)
CPT/HCPCS: 36415; 81003; 82951; 83036

== ENCOUNTER → 2022-11-29 | Day surgery (SDC) | payer MEDICARE, BC ==
[~2022-11-29] MED LIST changes: +LIDOCAINE HCL/EPINEPHRINE 1%-EPI 1:100,000 20 ML VIAL ONE; +SODIUM BICARBONATE 4% (2.4MEQ) 5ML VIAL IV ONE
== END | disposition home or self-care (01) ==
LOC: RAD 09:41
PROVIDERS: ATTEND Obstetrics & Gynecology Obstetrics
DX: R92.8 Other abnormal and inconclusive findings on diagnostic imaging of breast (principal); C50.912 Malignant neoplasm of unspecified site of left female breast; Z79.899 Other long term (current) drug therapy; Z80.0 Family history of malignant neoplasm of digestive organs
CPT/HCPCS: 19083; 88305; A4648; J3490

== ENCOUNTER → 2022-12-04 | Outpatient (CLI) | payer MEDICARE, BC ==
[~2022-12-04] MED LIST changes: -LIDOCAINE HCL/EPINEPHRINE 1%-EPI 1:100,000 20 ML VIAL ONE; -SODIUM BICARBONATE 4% (2.4MEQ) 5ML VIAL IV ONE
== END | disposition home or self-care (01) ==
LOC: MRI 15:46
PROVIDERS: ATTEND Podiatrist Foot & Ankle Surgery
DX: S86.911A Strain of unspecified muscle(s) and tendon(s) at lower leg level, right leg, initial encounter (principal); M19.072 Primary osteoarthritis, left ankle and foot; M19.071 Primary osteoarthritis, right ankle and foot; M21.611 Bunion of right foot; M85.872 Other specified disorders of bone density and structure, left ankle and foot; M25.772 Osteophyte, left ankle; M89.8X7 Other specified disorders of bone, ankle and foot; R60.0 Localized edema; X58.XXXA Exposure to other specified factors, initial encounter; Y93.89 Activity, other specified; Y92.89 Other specified places as the place of occurrence of the external cause; Y99.8 Other external cause status
CPT/HCPCS: 73610; 73630; 73718; 73721